=== PATIENT | female | born 1985 | race Caucasian/White ===

== ENCOUNTER 2017-04-09 12:43 | Emergency (ER) | payer MEDICARE ==
[2017-04-09 13:27] LABS: Bilirubin Negative (Negative); Blood, Urine Trace (Negative); Glucose, Urine (Dipstick) Negative (Negative); Leukocyte Negative (Negative); Nitrite Negative (Negative); Protein, Urine (Dipstick) Negative (Neg-Trace); Specific Gravity, Urine 1.015 (1.005-1.030); Urobilinogen 0.2 mg/dL (0.2-1.0)
[2017-04-09 13:28] LABS: Clarity Hazy (Clear)
[2017-04-09 13:29] LABS: Bacteria/HPF Rare-Few HPF (None Seen); Pregnancy Test - Urine (BHCG) Negative (Negative); RBC/HPF 0-3 HPF (0-3); WBC/HPF None Seen HPF (0-3)
[2017-04-09 13:30] LABS: Pregu Control Background? CLEAR/WHITE (CLR/WHITE); Pregu Control Bar Appear? YES (CONTROL BAR); Specific Gravity 1.015 (1.002-1.036)
[2017-04-09] MEDS ORDERED: predniSONE 20 MG TAB ONE ×2 (13:34→13:37)
== END 2017-04-09 13:45 | disposition home or self-care (01) ==
LOC: MADERS 12:43
DX: J98.01 Acute bronchospasm (principal); Z79.899 Other long term (current) drug therapy
CPT/HCPCS: 81003; 81015; 81025; 99285; J7506

== ENCOUNTER 2022-03-26 17:51 | Emergency (ER) | payer OTHER ==
[2022-03-26] MEDS ORDERED: methylPREDNISolone Sod Succ/PF 125 MG/2 ML VIAL ONE (18:19)
== END 2022-03-26 18:56 | disposition home or self-care (01) ==
LOC: MADERS 17:51
DX: J45.901 Unspecified asthma with (acute) exacerbation (principal); Z79.899 Other long term (current) drug therapy
CPT/HCPCS: 87804; 96372; J2930; J7620

== ENCOUNTER 2022-05-17 19:24 | Emergency (ER) | payer OTHER ==
[2022-05-17] MEDS ORDERED: Ipratropium/Albuterol 3 ML NEB ONE (19:30)
[2022-05-17] MEDS ORDERED: predniSONE 20 MG TAB ONE (19:35)
[2022-05-17] MEDS ORDERED: predniSONE 10 MG TAB ONE (19:36)
== END 2022-05-17 19:57 | disposition home or self-care (01) ==
LOC: MADERS 19:24
DX: J45.901 Unspecified asthma with (acute) exacerbation (principal)
CPT/HCPCS: J7512; J7620

== ENCOUNTER 2022-05-31 18:11 | Emergency (ER) | payer OTHER ==
[2022-05-31] MEDS ORDERED: Ampicillin/Sulbactam 3 GM VIAL ONE (18:41)
[2022-05-31] MEDS ORDERED: Sodium Chloride 0.9% 100 ML ONE (18:41)
== END 2022-05-31 19:18 | disposition home or self-care (01) ==
LOC: MADERS 18:11
DX: A69.1 Other Vincent's infections (principal); K02.9 Dental caries, unspecified
CPT/HCPCS: 96365; J0295; J3490

== ENCOUNTER 2022-07-08 02:13 | Emergency (ER) | payer OTHER ==
[2022-07-08] MEDS ORDERED: Ipratropium/Albuterol 3 ML NEB ONE (02:30)
== END 2022-07-08 04:00 | disposition left against medical advice (07) ==
LOC: MADERS 02:13
DX: J45.901 Unspecified asthma with (acute) exacerbation (principal)
CPT/HCPCS: J7620